=== PATIENT | female | born 1935 | race Caucasian/White ===

== ENCOUNTER 2021-01-14 17:05 | Inpatient (IN) ==
[2021-01-15] MEDS: Acetaminophen 325 MG TABLET PO PRN ×2 (00:48→16:46)
[2021-01-15] MEDS ORDERED: *HR* OxyCODONE Immed Rel 5 MG TABLET PO PRN (01:48)
[2021-01-15] MEDS ORDERED: Ergocalciferol (VIT D2) 50,000 UNIT (1.25MG) CAP PO SCH (02:00)
[2021-01-15 05:42] LABS: Hematocrit 26.1 % (35.3-44.9); Hemoglobin 8.2 g/dL (11.5-15.4); Mean Corpuscular HGB Conc 31.4 g/dL (31.6-35.5); Mean Corpuscular Hemoglobin 29.2 pg (28.0-33.3); Mean Corpuscular Volume 92.9 fL (83.0-100.0); Mean Platelet Volume 9.4 fL (9.4-12.4); Nucleated Red Blood Cells 0.5 /100 WBC (0); Platelet Count 226 K/mcL (140-400); Red Blood Count 2.81 M/mcL (3.82-4.97); Red Cell Distribution Width 15.3 % (11.5-14.5); White Blood Count 12.1 K/mcL (4.3-11.1)
[2021-01-15 05:48] LABS: Prothrombin Time 22.5 Seconds (9.4-12.1)
[2021-01-15 05:56] LABS: BUN/Creatinine Ratio 33 (6-26); Blood Urea Nitrogen 26 mg/dL (8-23); Calcium 8.5 mg/dL (8.6-10.3); Carbon Dioxide 27 mEq/L (23-29); Chloride 106 mEq/L (98-107); Glucose 97 mg/dL (70-105); Osmolality,Calculated 291 (280-300); Sodium 138 mEq/L (136-145); eGFR For African Americans > 60 (> 60); eGFR For Non-African Americans > 60 (> 60)
[2021-01-15] MEDS ORDERED: *HR* Enoxaparin 80 MG/0.8 ML SYRINGE SQ SCH (06:00)
[2021-01-15] MEDS: cephALEXin 500 MG CAPSULE PO SCH ×3 (08:23→21:13)
[2021-01-15] MEDS: amLODIPine 5 MG TABLET PO SCH (08:23)
[2021-01-15] MEDS: Cyanocobalamin (B-12) 1,000 MCG TABLET PO SCH (08:23)
[2021-01-15] MEDS: Sennosides/Docusate Sodium TABLET PO SCH ×2 (08:23→21:09)
[2021-01-15] MEDS: Cholecalciferol (D-3) 1,000 UNIT (25MCG) TABLET PO SCH (08:23)
[2021-01-15] MEDS: Multivit/Ca/Min/Fe/FA 1 TAB TABLET PO SCH (08:23)
[2021-01-15] MEDS: polyethylene glycoL 3350 17 GM POWD.PACK PO SCH ×2 (08:23→21:17)
[2021-01-15] MEDS: Aspirin Enteric Coated 81 MG Tablet PO SCH (08:23)
[2021-01-15] MEDS: Fluticasone Propionate Nasal 50 MCG/SPRAY BOTTLE NS SCH ×2 (08:24→21:17)
[2021-01-15 10:12] LABS: Eosinophils # 0.2 K/mcL (0.0-0.6); Hypochromasia Present (Not Present); Lymphocytes # 1.2 K/mcL (0.6-4.6); Neutrophils # 10.7 K/mcL (1.6-8.9); Platelet Estimate Normal (Normal)
[2021-01-15] MEDS: Budesonide/Formoterol 160/4.5 1 PUFF INH IH SCH ×2 (10:17→20:39)
[2021-01-15] MEDS: *HR* OxyCODONE Immed Rel 5 MG TABLET PO PRN ×2 (12:48→21:04)
[2021-01-15] MEDS ORDERED: Warfarin perPT PO PRN (18:00)
[2021-01-15] MEDS ORDERED: *HR* Warfarin 2.5 MG TABLET PO SCH (18:00)
[2021-01-15] MEDS: Melatonin 3 MG TABLET PO SCH (21:11)
[2021-01-15] MEDS: Latanoprost 2.5 ML BOTTLE BOTH EYES SCH (21:17)
[2021-01-16] MEDS: *HR* OxyCODONE Immed Rel 5 MG TABLET PO PRN ×3 (04:31→23:49)
[2021-01-16 06:07] LABS: INR 1.7; Prothrombin Time 19.1 Seconds (9.4-12.1)
[2021-01-16] MEDS: cephALEXin 500 MG CAPSULE PO SCH ×3 (08:47→21:19)
[2021-01-16] MEDS: Cholecalciferol (D-3) 1,000 UNIT (25MCG) TABLET PO SCH (08:48)
[2021-01-16] MEDS: Sennosides/Docusate Sodium TABLET PO SCH ×2 (08:48→21:20)
[2021-01-16] MEDS: amLODIPine 5 MG TABLET PO SCH (08:48)
[2021-01-16] MEDS: Multivit/Ca/Min/Fe/FA 1 TAB TABLET PO SCH (08:48)
[2021-01-16] MEDS: polyethylene glycoL 3350 17 GM POWD.PACK PO SCH ×2 (08:48→21:20)
[2021-01-16] MEDS: Cyanocobalamin (B-12) 1,000 MCG TABLET PO SCH (08:48)
[2021-01-16] MEDS: Aspirin Enteric Coated 81 MG Tablet PO SCH (08:48)
[2021-01-16] MEDS: Fluticasone Propionate Nasal 50 MCG/SPRAY BOTTLE NS SCH ×2 (08:49→21:22)
[2021-01-16] MEDS: Budesonide/Formoterol 160/4.5 1 PUFF INH IH SCH ×2 (10:35→20:37)
[2021-01-16] MEDS: *HR* Enoxaparin 80 MG/0.8 ML SYRINGE SQ SCH (17:30)
[2021-01-16] MEDS ORDERED: *HR* Warfarin 2 MG TABLET PO ONE (18:00)
[2021-01-16] MEDS: Melatonin 3 MG TABLET PO SCH (21:19)
[2021-01-16] MEDS: Latanoprost 2.5 ML BOTTLE BOTH EYES SCH (21:23)
[2021-01-16] MEDS: Acetaminophen 325 MG TABLET PO PRN (21:25)
[2021-01-17] MEDS: *HR* Enoxaparin 80 MG/0.8 ML SYRINGE SQ SCH ×2 (05:46→17:10)
[2021-01-17 05:56] LABS: Hematocrit 24.4 % (35.3-44.9); Hemoglobin 7.4 g/dL (11.5-15.4); Mean Corpuscular HGB Conc 30.3 g/dL (31.6-35.5); Mean Corpuscular Hemoglobin 29.2 pg (28.0-33.3); Mean Corpuscular Volume 96.4 fL (83.0-100.0); Platelet Count 278 K/mcL (140-400); Red Blood Count 2.53 M/mcL (3.82-4.97); Red Cell Distribution Width 16.1 % (11.5-14.5); White Blood Count 12.4 K/mcL (4.3-11.1)
[2021-01-17 06:03] LABS: INR 1.5; Prothrombin Time 16.7 Seconds (9.4-12.1)
[2021-01-17 07:02] LABS: Alanine Aminotransferase 19 Units/L (7-52); Albumin 2.8 g/dL (3.5-5.7); Albumin/Globulin Ratio 1.2 (1.1-2.2); Alkaline Phosphatase 171 Units/L (34-104); Aspartate Amino Transferase 60 Units/L (13-39); BUN/Creatinine Ratio 28 (6-26); Bilirubin,Total 0.7 mg/dL (0.3-1.0); Blood Urea Nitrogen 23 mg/dL (8-23); Calcium 8.4 mg/dL (8.6-10.3); Carbon Dioxide 28 mEq/L (23-29); Chloride 105 mEq/L (98-107); Globulin 2.3 g/dL (2.4-3.5); Glucose 119 mg/dL (70-105); Magnesium 1.8 mg/dL (1.6-2.6); Osmolality,Calculated 293 (280-300); Potassium 4.2 mEq/L (3.5-5.1); Sodium 139 mEq/L (136-145); Total Protein 5.1 g/dL (6.4-8.9); eGFR For African Americans > 60 (> 60); eGFR For Non-African Americans > 60 (> 60)
[2021-01-17] MEDS: polyethylene glycoL 3350 17 GM POWD.PACK PO SCH ×2 (08:16→20:42)
[2021-01-17] MEDS: Multivit/Ca/Min/Fe/FA 1 TAB TABLET PO SCH (08:17)
[2021-01-17] MEDS: Cholecalciferol (D-3) 1,000 UNIT (25MCG) TABLET PO SCH (08:17)
[2021-01-17] MEDS: amLODIPine 5 MG TABLET PO SCH (08:18)
[2021-01-17] MEDS: cephALEXin 500 MG CAPSULE PO SCH ×3 (08:18→20:43)
[2021-01-17] MEDS: Aspirin Enteric Coated 81 MG Tablet PO SCH (08:18)
[2021-01-17] MEDS: Sennosides/Docusate Sodium TABLET PO SCH ×2 (08:18→20:43)
[2021-01-17] MEDS: *HR* OxyCODONE Immed Rel 5 MG TABLET PO PRN ×2 (08:18→13:40)
[2021-01-17] MEDS: Cyanocobalamin (B-12) 1,000 MCG TABLET PO SCH (08:19)
[2021-01-17] MEDS: Fluticasone Propionate Nasal 50 MCG/SPRAY BOTTLE NS SCH ×2 (08:20→20:17)
[2021-01-17] MEDS: Budesonide/Formoterol 160/4.5 1 PUFF INH IH SCH ×2 (10:40→20:24)
[2021-01-17] MEDS: Furosemide 20 MG TABLET PO SCH (17:11)
[2021-01-17] MEDS ORDERED: *HR* Warfarin 2.5 MG TABLET PO ONE (18:00)
[2021-01-17] MEDS: Melatonin 3 MG TABLET PO SCH (20:43)
[2021-01-17] MEDS: Latanoprost 2.5 ML BOTTLE BOTH EYES SCH (20:44)
[2021-01-18] MEDS: *HR* OxyCODONE Immed Rel 5 MG TABLET PO PRN ×2 (04:20→20:10)
[2021-01-18] MEDS: *HR* Enoxaparin 80 MG/0.8 ML SYRINGE SQ SCH ×2 (04:20→16:32)
[2021-01-18 07:18] LABS: Hematocrit 22.9 % (35.3-44.9); Hemoglobin 7.1 g/dL (11.5-15.4)
[2021-01-18 07:25] LABS: INR 1.9; Prothrombin Time 20.8 Seconds (9.4-12.1)
[2021-01-18] MEDS: Aspirin Enteric Coated 81 MG Tablet PO SCH (09:25)
[2021-01-18] MEDS: Furosemide 20 MG TABLET PO SCH (09:25)
[2021-01-18] MEDS: Cholecalciferol (D-3) 1,000 UNIT (25MCG) TABLET PO SCH (09:26)
[2021-01-18] MEDS: Multivit/Ca/Min/Fe/FA 1 TAB TABLET PO SCH (09:26)
[2021-01-18] MEDS: Cyanocobalamin (B-12) 1,000 MCG TABLET PO SCH (09:26)
[2021-01-18] MEDS: Acetaminophen 325 MG TABLET PO PRN ×2 (09:26→17:24)
[2021-01-18] MEDS: cephALEXin 500 MG CAPSULE PO SCH ×3 (09:26→20:10)
[2021-01-18] MEDS: amLODIPine 5 MG TABLET PO SCH (09:26)
[2021-01-18] MEDS: Sennosides/Docusate Sodium TABLET PO SCH ×2 (09:26→20:10)
[2021-01-18] MEDS: polyethylene glycoL 3350 17 GM POWD.PACK PO SCH ×2 (09:28→20:10)
[2021-01-18] MEDS: Fluticasone Propionate Nasal 50 MCG/SPRAY BOTTLE NS SCH ×2 (09:28→20:09)
[2021-01-18] MEDS: Budesonide/Formoterol 160/4.5 1 PUFF INH IH SCH ×2 (10:08→20:44)
[2021-01-18 12:46] LABS: Iron 26 mcg/dL (50-170)
[2021-01-18] MEDS ORDERED: *HR* Warfarin 2 MG TABLET PO ONE (18:00)
[2021-01-18] MEDS: Melatonin 3 MG TABLET PO SCH (20:10)
[2021-01-18] MEDS: Latanoprost 2.5 ML BOTTLE BOTH EYES SCH (20:11)
[2021-01-19 04:33] LABS: INR 1.6; Prothrombin Time 17.9 Seconds (9.4-12.1)
[2021-01-19] MEDS: *HR* Enoxaparin 80 MG/0.8 ML SYRINGE SQ SCH ×2 (04:40→16:43)
[2021-01-19 08:10] LABS: Hematocrit 23.8 % (35.3-44.9); Hemoglobin 7.3 g/dL (11.5-15.4); Mean Corpuscular HGB Conc 30.7 g/dL (31.6-35.5); Mean Corpuscular Hemoglobin 29.6 pg (28.0-33.3); Mean Corpuscular Volume 96.4 fL (83.0-100.0); Mean Platelet Volume 9.2 fL (9.4-12.4); Platelet Count 301 K/mcL (140-400); Red Blood Count 2.47 M/mcL (3.82-4.97); Red Cell Distribution Width 16.2 % (11.5-14.5); White Blood Count 9.5 K/mcL (4.3-11.1)
[2021-01-19 08:24] LABS: BUN/Creatinine Ratio 26 (6-26); Blood Urea Nitrogen 21 mg/dL (8-23); Calcium 8.1 mg/dL (8.6-10.3); Calcium 8.2 mg/dL (8.6-10.3); Carbon Dioxide 30 mEq/L (23-29); Chloride 104 mEq/L (98-107); Glucose 111 mg/dL (70-105); Magnesium 1.8 mg/dL (1.6-2.6); Osmolality,Calculated 290 (280-300); Potassium 4.4 mEq/L (3.5-5.1); Sodium 138 mEq/L (136-145); eGFR For African Americans > 60 (> 60); eGFR For Non-African Americans > 60 (> 60)
[2021-01-19] MEDS: Budesonide/Formoterol 160/4.5 1 PUFF INH IH SCH ×2 (10:25→22:02)
[2021-01-19] MEDS: amLODIPine 5 MG TABLET PO SCH (11:28)
[2021-01-19] MEDS: polyethylene glycoL 3350 17 GM POWD.PACK PO SCH ×2 (11:28→21:56)
[2021-01-19] MEDS: Fluticasone Propionate Nasal 50 MCG/SPRAY BOTTLE NS SCH ×2 (11:28→22:00)
[2021-01-19] MEDS: Cholecalciferol (D-3) 1,000 UNIT (25MCG) TABLET PO SCH (11:30)
[2021-01-19] MEDS: Aspirin Enteric Coated 81 MG Tablet PO SCH (11:30)
[2021-01-19] MEDS: Multivit/Ca/Min/Fe/FA 1 TAB TABLET PO SCH (11:30)
[2021-01-19] MEDS: Cyanocobalamin (B-12) 1,000 MCG TABLET PO SCH (11:30)
[2021-01-19] MEDS: cephALEXin 500 MG CAPSULE PO SCH ×3 (11:31→21:58)
[2021-01-19] MEDS: Sennosides/Docusate Sodium TABLET PO SCH ×2 (11:31→21:57)
[2021-01-19] MEDS: Furosemide 20 MG TABLET PO SCH (11:31)
[2021-01-19] MEDS: Acetaminophen 325 MG TABLET PO PRN (11:31)
[2021-01-19] MEDS ORDERED: 0.9 % Sodium Chloride 250 ML ONE (12:39)
[2021-01-19] MEDS: *HR* OxyCODONE Immed Rel 5 MG TABLET PO PRN ×2 (16:43→22:30)
[2021-01-19] MEDS ORDERED: *HR* Warfarin 3 MG TABLET PO ONE (18:00)
[2021-01-19] MEDS: Melatonin 3 MG TABLET PO SCH (21:58)
[2021-01-19] MEDS: Latanoprost 2.5 ML BOTTLE BOTH EYES SCH (21:59)
[2021-01-19] MEDS ORDERED: *HR* Phytonadione 5 MG TABLET PO ONE (23:58)
[2021-01-20 06:52] LABS: Basophils # 0.1 K/mcL (0.0-0.2); Basophils % 0.6 %; Eosinophils # 0.3 K/mcL (0.0-0.6); Eosinophils % 2.4 %; Hemoglobin 7.4 g/dL (11.5-15.4); Immature Granulocytes % 5.4 % (0-4); Lymphocytes # 1.8 K/mcL (0.6-4.6); Lymphocytes % 14.8 %; Mean Corpuscular HGB Conc 30.8 g/dL (31.6-35.5); Mean Corpuscular Volume 94.1 fL (83.0-100.0); Mean Platelet Volume 9.6 fL (9.4-12.4); Monocytes # 0.9 K/mcL (0.0-1.3); Monocytes % 7.4 %; Neutrophils # 8.5 K/mcL (1.6-8.9); Nucleated Red Blood Cells 0.2 /100 WBC (0); Platelet Count 333 K/mcL (140-400); Red Blood Count 2.55 M/mcL (3.82-4.97); Red Cell Distribution Width 17.2 % (11.5-14.5); Segmented Neutrophils % 69.4 %; White Blood Count 12.3 K/mcL (4.3-11.1)
[2021-01-20 06:54] LABS: INR 1.6; Prothrombin Time 17.7 Seconds (9.4-12.1)
[2021-01-20 07:00] LABS: BUN/Creatinine Ratio 35 (6-26); Blood Urea Nitrogen 27 mg/dL (8-23); Calcium 7.9 mg/dL (8.6-10.3); Carbon Dioxide 30 mEq/L (23-29); Chloride 104 mEq/L (98-107); Glucose 119 mg/dL (70-105); Osmolality,Calculated 292 (280-300); Potassium 4.7 mEq/L (3.5-5.1); Sodium 138 mEq/L (136-145); eGFR For African Americans > 60 (> 60); eGFR For Non-African Americans > 60 (> 60)
[2021-01-20 07:23] LABS: Hypochromasia Present (Not Present); Platelet Estimate Normal (Normal)
[2021-01-20] MEDS ORDERED: Iron Sucrose Complex 200 MG in 0.9 % Sodium Chloride 100 ML IVPB ONE (08:00)
[2021-01-20] MEDS: polyethylene glycoL 3350 17 GM POWD.PACK PO SCH ×2 (09:00→20:37)
[2021-01-20] MEDS: Cyanocobalamin (B-12) 1,000 MCG TABLET PO SCH (09:01)
[2021-01-20] MEDS: Cholecalciferol (D-3) 1,000 UNIT (25MCG) TABLET PO SCH (09:01)
[2021-01-20] MEDS: Furosemide 20 MG TABLET PO SCH (09:01)
[2021-01-20] MEDS: Sennosides/Docusate Sodium TABLET PO SCH ×2 (09:01→20:37)
[2021-01-20] MEDS: Aspirin Enteric Coated 81 MG Tablet PO SCH (09:02)
[2021-01-20] MEDS: Multivit/Ca/Min/Fe/FA 1 TAB TABLET PO SCH (09:02)
[2021-01-20] MEDS: cephALEXin 500 MG CAPSULE PO SCH ×3 (09:02→20:38)
[2021-01-20] MEDS: Fluticasone Propionate Nasal 50 MCG/SPRAY BOTTLE NS SCH ×2 (09:03→20:39)
[2021-01-20] MEDS: amLODIPine 5 MG TABLET PO SCH (09:03)
[2021-01-20] MEDS: Acetaminophen 325 MG TABLET PO PRN (09:32)
[2021-01-20] MEDS: Budesonide/Formoterol 160/4.5 1 PUFF INH IH SCH ×2 (10:12→20:28)
[2021-01-20] MEDS: *HR* OxyCODONE Immed Rel 5 MG TABLET PO PRN (13:35)
[2021-01-20 14:21] LABS: % Iron Saturation 16 % (15-50); Transferrin 118 mg/dL (200-400)
[2021-01-20 20:31] VITALS: BP 104/60; PULSE 86; RESP 18; TEMP 98.1; O2SAT 97
[2021-01-20] MEDS: Melatonin 3 MG TABLET PO SCH (20:38)
[2021-01-20] MEDS: Latanoprost 2.5 ML BOTTLE BOTH EYES SCH (20:41)
== END 2021-01-20 23:03 | disposition short-term general hospital (02) | DRG 559 ==
LOC: INPGRE 23:10
PROVIDERS: ADMIT Family Medicine; ATTEND Family Medicine

== ENCOUNTER 2021-01-31 13:23 | Inpatient (IN) ==
[2021-01-31] MEDS ORDERED: *HR* Warfarin 2.5 MG TABLET PO SCH (18:00)
[2021-02-01] MEDS: Budesonide/Formoterol 160/4.5 1 PUFF INH IH SCH ×3 (01:45→20:20)
[2021-02-01] MEDS: *HR* OxyCODONE Immed Rel 5 MG TABLET PO PRN ×3 (02:33→20:22)
[2021-02-01] MEDS: Saline Nasal Spray 44 ML BOTTLE NS SCH ×5 (02:39→21:39)
[2021-02-01] MEDS: Sennosides/Docusate Sodium TABLET PO SCH ×3 (02:40→20:21)
[2021-02-01] MEDS: Melatonin 3 MG TABLET PO SCH ×2 (02:46→20:22)
[2021-02-01 06:00] LABS: Basophils % 0.6 %; Eosinophils # 0.3 K/mcL (0.0-0.6); Eosinophils % 4.5 %; Hematocrit 24.9 % (35.3-44.9); Hemoglobin 7.6 g/dL (11.5-15.4); Immature Granulocytes % 2.3 % (0-4); Lymphocytes # 1.5 K/mcL (0.6-4.6); Lymphocytes % 21.4 %; Mean Corpuscular HGB Conc 30.5 g/dL (31.6-35.5); Mean Corpuscular Hemoglobin 29.9 pg (28.0-33.3); Mean Platelet Volume 9.4 fL (9.4-12.4); Monocytes # 0.8 K/mcL (0.0-1.3); Monocytes % 11.5 %; Neutrophils # 4.2 K/mcL (1.6-8.9); Platelet Count 294 K/mcL (140-400); Red Blood Count 2.54 M/mcL (3.82-4.97); Red Cell Distribution Width 17.6 % (11.5-14.5); Segmented Neutrophils % 59.7 %; White Blood Count 7.1 K/mcL (4.3-11.1)
[2021-02-01 06:04] LABS: INR 1.3; Prothrombin Time 14.3 Seconds (9.4-12.1)
[2021-02-01 06:15] LABS: BUN/Creatinine Ratio 19 (6-26); Blood Urea Nitrogen 15 mg/dL (8-23); Calcium 8.1 mg/dL (8.6-10.3); Carbon Dioxide 26 mEq/L (23-29); Chloride 105 mEq/L (98-107); Glucose 119 mg/dL (70-105); Osmolality,Calculated 284 (280-300); Potassium 3.6 mEq/L (3.5-5.1); Sodium 136 mEq/L (136-145); eGFR For African Americans > 60 (> 60); eGFR For Non-African Americans > 60 (> 60)
[2021-02-01] MEDS: polyethylene glycoL 3350 17 GM POWD.PACK PO PRN (08:09)
[2021-02-01] MEDS: Acetaminophen 325 MG TABLET PO PRN ×2 (08:10→17:32)
[2021-02-01] MEDS: Cholecalciferol (D-3) 1,000 UNIT (25MCG) TABLET PO SCH (08:10)
[2021-02-01] MEDS: Magnesium Oxide 400 MG TABLET PO SCH (08:10)
[2021-02-01] MEDS: Cyanocobalamin (B-12) 1,000 MCG TABLET PO SCH (08:10)
[2021-02-01] MEDS: Multivit/Ca/Min/Fe/FA 1 TAB TABLET PO SCH (08:10)
[2021-02-01] MEDS: Fluticasone Propionate Nasal 50 MCG/SPRAY BOTTLE NS SCH ×2 (08:11→20:25)
[2021-02-01] MEDS: Metoprolol XL (24 HR) Succ 25 MG TAB.ER.24H PO SCH (08:11)
[2021-02-01] MEDS: Aspirin Enteric Coated 81 MG Tablet PO SCH (08:11)
[2021-02-01] MEDS ORDERED: Warfarin perPT PO PRN (18:00)
[2021-02-01] MEDS ORDERED: *HR* Warfarin 5 MG TABLET PO ONE (18:00)
[2021-02-01] MEDS: Latanoprost 2.5 ML BOTTLE BOTH EYES SCH (20:24)
[2021-02-02] MEDS: *HR* OxyCODONE Immed Rel 5 MG TABLET PO PRN ×2 (05:59→19:54)
[2021-02-02 06:28] LABS: INR 1.5; Prothrombin Time 16.3 Seconds (9.4-12.1)
[2021-02-02] MEDS ORDERED: Ergocalciferol (VIT D2) 50,000 UNIT (1.25MG) CAP PO SCH (09:00)
[2021-02-02] MEDS: Metoprolol XL (24 HR) Succ 25 MG TAB.ER.24H PO SCH (09:16)
[2021-02-02] MEDS: Cyanocobalamin (B-12) 1,000 MCG TABLET PO SCH (09:17)
[2021-02-02] MEDS: Sennosides/Docusate Sodium TABLET PO SCH ×2 (09:17→19:47)
[2021-02-02] MEDS: Multivit/Ca/Min/Fe/FA 1 TAB TABLET PO SCH (09:17)
[2021-02-02] MEDS: Cholecalciferol (D-3) 1,000 UNIT (25MCG) TABLET PO SCH (09:17)
[2021-02-02] MEDS: Aspirin Enteric Coated 81 MG Tablet PO SCH (09:17)
[2021-02-02] MEDS: Saline Nasal Spray 44 ML BOTTLE NS SCH ×4 (09:17→19:49)
[2021-02-02] MEDS: Magnesium Oxide 400 MG TABLET PO SCH (09:17)
[2021-02-02] MEDS: Acetaminophen 325 MG TABLET PO PRN ×2 (09:18→14:40)
[2021-02-02] MEDS: Fluticasone Propionate Nasal 50 MCG/SPRAY BOTTLE NS SCH ×2 (09:19→19:48)
[2021-02-02] MEDS: Budesonide/Formoterol 160/4.5 1 PUFF INH IH SCH ×2 (10:39→20:47)
[2021-02-02 10:57] LABS: Hematocrit 25.5 % (35.3-44.9); Hemoglobin 7.7 g/dL (11.5-15.4)
[2021-02-02] MEDS ORDERED: *HR* Warfarin 5 MG TABLET PO ONE (18:00)
[2021-02-02] MEDS: Melatonin 3 MG TABLET PO SCH (19:48)
[2021-02-02] MEDS: Latanoprost 2.5 ML BOTTLE BOTH EYES SCH (19:48)
[2021-02-03 05:01] LABS: Basophils # 0.1 K/mcL (0.0-0.2); Basophils % 0.8 %; Eosinophils # 0.4 K/mcL (0.0-0.6); Eosinophils % 5.9 %; Hematocrit 26.7 % (35.3-44.9); Hemoglobin 7.9 g/dL (11.5-15.4); Immature Granulocytes % 2.1 % (0-4); Lymphocytes # 1.7 K/mcL (0.6-4.6); Lymphocytes % 25.6 %; Mean Corpuscular HGB Conc 29.6 g/dL (31.6-35.5); Mean Corpuscular Hemoglobin 29.6 pg (28.0-33.3); Mean Platelet Volume 9.1 fL (9.4-12.4); Monocytes # 0.7 K/mcL (0.0-1.3); Monocytes % 10.9 %; Neutrophils # 3.6 K/mcL (1.6-8.9); Platelet Count 299 K/mcL (140-400); Red Blood Count 2.67 M/mcL (3.82-4.97); Red Cell Distribution Width 17.5 % (11.5-14.5); Segmented Neutrophils % 54.7 %; White Blood Count 6.6 K/mcL (4.3-11.1)
[2021-02-03 05:02] LABS: INR 1.5; Prothrombin Time 16.4 Seconds (9.4-12.1)
[2021-02-03] MEDS: Acetaminophen 325 MG TABLET PO PRN ×2 (05:17→14:41)
[2021-02-03 05:20] LABS: Alanine Aminotransferase 15 Units/L (7-52); Albumin 2.8 g/dL (3.5-5.7); Albumin/Globulin Ratio 0.9 (1.1-2.2); Alkaline Phosphatase 109 Units/L (34-104); Aspartate Amino Transferase 23 Units/L (13-39); BUN/Creatinine Ratio 20 (6-26); Bilirubin,Total 0.5 mg/dL (0.3-1.0); Blood Urea Nitrogen 17 mg/dL (8-23); Calcium 8.5 mg/dL (8.6-10.3); Carbon Dioxide 28 mEq/L (23-29); Chloride 105 mEq/L (98-107); Globulin 3.1 g/dL (2.4-3.5); Glucose 106 mg/dL (70-105); Osmolality,Calculated 288 (280-300); Potassium 4.9 mEq/L (3.5-5.1); Sodium 138 mEq/L (136-145); Total Protein 5.9 g/dL (6.4-8.9); eGFR For African Americans > 60 (> 60); eGFR For Non-African Americans > 60 (> 60)
[2021-02-03] MEDS: Saline Nasal Spray 44 ML BOTTLE NS SCH ×4 (07:38→20:42)
[2021-02-03] MEDS: Metoprolol XL (24 HR) Succ 25 MG TAB.ER.24H PO SCH (07:38)
[2021-02-03] MEDS: Sennosides/Docusate Sodium TABLET PO SCH ×2 (07:38→20:33)
[2021-02-03] MEDS: Cholecalciferol (D-3) 1,000 UNIT (25MCG) TABLET PO SCH (07:38)
[2021-02-03] MEDS: Cyanocobalamin (B-12) 1,000 MCG TABLET PO SCH (07:38)
[2021-02-03] MEDS: Multivit/Ca/Min/Fe/FA 1 TAB TABLET PO SCH (07:38)
[2021-02-03] MEDS: Magnesium Oxide 400 MG TABLET PO SCH (07:38)
[2021-02-03] MEDS: Aspirin Enteric Coated 81 MG Tablet PO SCH (07:38)
[2021-02-03] MEDS: Fluticasone Propionate Nasal 50 MCG/SPRAY BOTTLE NS SCH ×2 (07:39→20:37)
[2021-02-03] MEDS: Budesonide/Formoterol 160/4.5 1 PUFF INH IH SCH ×2 (10:20→19:59)
[2021-02-03] MEDS ORDERED: *HR* Warfarin 7.5 MG TABLET PO ONE (18:00)
[2021-02-03] MEDS: polyethylene glycoL 3350 17 GM POWD.PACK PO PRN (20:33)
[2021-02-03] MEDS: *HR* OxyCODONE Immed Rel 5 MG TABLET PO PRN (20:33)
[2021-02-03] MEDS: Melatonin 3 MG TABLET PO SCH (20:34)
[2021-02-03] MEDS: Latanoprost 2.5 ML BOTTLE BOTH EYES SCH (20:37)
[2021-02-04 04:55] LABS: INR 1.5; Prothrombin Time 16.4 Seconds (9.4-12.1)
[2021-02-04] MEDS: Cholecalciferol (D-3) 1,000 UNIT (25MCG) TABLET PO SCH (08:31)
[2021-02-04] MEDS: Sennosides/Docusate Sodium TABLET PO SCH ×2 (08:31→19:18)
[2021-02-04] MEDS: Acetaminophen 325 MG TABLET PO PRN ×2 (08:31→14:46)
[2021-02-04] MEDS: Magnesium Oxide 400 MG TABLET PO SCH (08:32)
[2021-02-04] MEDS: Multivit/Ca/Min/Fe/FA 1 TAB TABLET PO SCH (08:32)
[2021-02-04] MEDS: Metoprolol XL (24 HR) Succ 25 MG TAB.ER.24H PO SCH (08:32)
[2021-02-04] MEDS: Cyanocobalamin (B-12) 1,000 MCG TABLET PO SCH (08:32)
[2021-02-04] MEDS: Aspirin Enteric Coated 81 MG Tablet PO SCH (08:32)
[2021-02-04] MEDS: Fluticasone Propionate Nasal 50 MCG/SPRAY BOTTLE NS SCH ×2 (08:35→21:10)
[2021-02-04] MEDS: Saline Nasal Spray 44 ML BOTTLE NS SCH ×4 (08:35→21:12)
[2021-02-04] MEDS: Budesonide/Formoterol 160/4.5 1 PUFF INH IH SCH ×2 (10:40→19:52)
[2021-02-04] MEDS ORDERED: Bisacodyl 10 MG RECTAL SUPPOSITORY RC PRN (11:55)
[2021-02-04] MEDS ORDERED: *HR* Warfarin 7.5 MG TABLET PO ONE (18:00)
[2021-02-04] MEDS: Melatonin 3 MG TABLET PO SCH (19:18)
[2021-02-04] MEDS: *HR* OxyCODONE Immed Rel 5 MG TABLET PO PRN (21:09)
[2021-02-04] MEDS: Latanoprost 2.5 ML BOTTLE BOTH EYES SCH (21:10)
[2021-02-05 05:20] LABS: Hematocrit 26.6 % (35.3-44.9); Hemoglobin 7.9 g/dL (11.5-15.4); Mean Corpuscular HGB Conc 29.7 g/dL (31.6-35.5); Mean Corpuscular Hemoglobin 29.4 pg (28.0-33.3); Mean Corpuscular Volume 98.9 fL (83.0-100.0); Mean Platelet Volume 8.9 fL (9.4-12.4); Platelet Count 273 K/mcL (140-400); Red Blood Count 2.69 M/mcL (3.82-4.97); Red Cell Distribution Width 17.2 % (11.5-14.5); White Blood Count 5.6 K/mcL (4.3-11.1)
[2021-02-05 05:25] LABS: INR 1.7; Prothrombin Time 18.5 Seconds (9.4-12.1)
[2021-02-05 05:37] LABS: Alanine Aminotransferase 12 Units/L (7-52); Albumin 2.8 g/dL (3.5-5.7); Albumin/Globulin Ratio 0.9 (1.1-2.2); Alkaline Phosphatase 111 Units/L (34-104); Aspartate Amino Transferase 20 Units/L (13-39); BUN/Creatinine Ratio 19 (6-26); Bilirubin,Total 0.5 mg/dL (0.3-1.0); Blood Urea Nitrogen 17 mg/dL (8-23); Calcium 8.4 mg/dL (8.6-10.3); Carbon Dioxide 27 mEq/L (23-29); Chloride 106 mEq/L (98-107); Glucose 108 mg/dL (70-105); Magnesium 1.9 mg/dL (1.6-2.6); Osmolality,Calculated 288 (280-300); Potassium 4.1 mEq/L (3.5-5.1); Sodium 138 mEq/L (136-145); Total Protein 5.8 g/dL (6.4-8.9); eGFR For African Americans > 60 (> 60); eGFR For Non-African Americans > 60 (> 60)
[2021-02-05] MEDS: Acetaminophen 325 MG TABLET PO PRN ×2 (06:20→14:43)
[2021-02-05] MEDS: Cholecalciferol (D-3) 1,000 UNIT (25MCG) TABLET PO SCH (08:27)
[2021-02-05] MEDS: Sennosides/Docusate Sodium TABLET PO SCH ×2 (08:27→20:57)
[2021-02-05] MEDS: Aspirin Enteric Coated 81 MG Tablet PO SCH (08:27)
[2021-02-05] MEDS: Metoprolol XL (24 HR) Succ 25 MG TAB.ER.24H PO SCH (08:27)
[2021-02-05] MEDS: Cyanocobalamin (B-12) 1,000 MCG TABLET PO SCH (08:27)
[2021-02-05] MEDS: Magnesium Oxide 400 MG TABLET PO SCH (08:27)
[2021-02-05] MEDS: Fluticasone Propionate Nasal 50 MCG/SPRAY BOTTLE NS SCH ×2 (08:28→20:58)
[2021-02-05] MEDS: Saline Nasal Spray 44 ML BOTTLE NS SCH ×4 (08:28→20:57)
[2021-02-05] MEDS: Multivit/Ca/Min/Fe/FA 1 TAB TABLET PO SCH (08:28)
[2021-02-05] MEDS: Budesonide/Formoterol 160/4.5 1 PUFF INH IH SCH ×2 (11:25→19:47)
[2021-02-05] MEDS ORDERED: *HR* Warfarin 7.5 MG TABLET PO ONE (18:00)
[2021-02-05] MEDS: Melatonin 3 MG TABLET PO SCH (20:56)
[2021-02-05] MEDS: *HR* OxyCODONE Immed Rel 5 MG TABLET PO PRN (20:56)
[2021-02-05] MEDS: Latanoprost 2.5 ML BOTTLE BOTH EYES SCH (20:58)
[2021-02-06 06:20] LABS: INR 1.9; Prothrombin Time 20.8 Seconds (9.4-12.1)
[2021-02-06] MEDS: Metoprolol XL (24 HR) Succ 25 MG TAB.ER.24H PO SCH (08:06)
[2021-02-06] MEDS: Cyanocobalamin (B-12) 1,000 MCG TABLET PO SCH (08:06)
[2021-02-06] MEDS: Multivit/Ca/Min/Fe/FA 1 TAB TABLET PO SCH (08:06)
[2021-02-06] MEDS: Aspirin Enteric Coated 81 MG Tablet PO SCH (08:06)
[2021-02-06] MEDS: Magnesium Oxide 400 MG TABLET PO SCH (08:06)
[2021-02-06] MEDS: Cholecalciferol (D-3) 1,000 UNIT (25MCG) TABLET PO SCH (08:06)
[2021-02-06] MEDS: Sennosides/Docusate Sodium TABLET PO SCH ×2 (08:07→20:37)
[2021-02-06] MEDS: Acetaminophen 325 MG TABLET PO PRN ×2 (08:07→14:53)
[2021-02-06] MEDS: polyethylene glycoL 3350 17 GM POWD.PACK PO PRN (08:14)
[2021-02-06] MEDS: Fluticasone Propionate Nasal 50 MCG/SPRAY BOTTLE NS SCH ×2 (09:51→20:38)
[2021-02-06] MEDS: Saline Nasal Spray 44 ML BOTTLE NS SCH ×4 (09:51→20:38)
[2021-02-06] MEDS: Budesonide/Formoterol 160/4.5 1 PUFF INH IH SCH ×2 (10:34→20:27)
[2021-02-06] MEDS ORDERED: *HR* Warfarin 7.5 MG TABLET PO ONE (18:00)
[2021-02-06] MEDS: *HR* OxyCODONE Immed Rel 5 MG TABLET PO PRN (20:37)
[2021-02-06] MEDS: Melatonin 3 MG TABLET PO SCH (20:37)
[2021-02-06] MEDS: Latanoprost 2.5 ML BOTTLE BOTH EYES SCH (20:38)
[2021-02-07 06:11] LABS: Hematocrit 28.1 % (35.3-44.9); Hemoglobin 8.5 g/dL (11.5-15.4); Mean Corpuscular HGB Conc 30.2 g/dL (31.6-35.5); Mean Corpuscular Hemoglobin 29.5 pg (28.0-33.3); Mean Corpuscular Volume 97.6 fL (83.0-100.0); Mean Platelet Volume 9.3 fL (9.4-12.4); Platelet Count 283 K/mcL (140-400); Red Blood Count 2.88 M/mcL (3.82-4.97)
[2021-02-07 06:22] LABS: INR 1.9; Prothrombin Time 21.6 Seconds (9.4-12.1)
[2021-02-07 06:35] LABS: BUN/Creatinine Ratio 20 (6-26); Blood Urea Nitrogen 18 mg/dL (8-23); Calcium 8.5 mg/dL (8.6-10.3); Carbon Dioxide 28 mEq/L (23-29); Chloride 104 mEq/L (98-107); Glucose 109 mg/dL (70-105); Osmolality,Calculated 288 (280-300); Potassium 4.2 mEq/L (3.5-5.1); Sodium 138 mEq/L (136-145); eGFR For African Americans > 60 (> 60); eGFR For Non-African Americans 60 (> 60)
[2021-02-07 07:44] VITALS: BP 146/63; PULSE 76; RESP 18; TEMP 98.1
[2021-02-07] MEDS: Sennosides/Docusate Sodium TABLET PO SCH (07:59)
[2021-02-07] MEDS: Acetaminophen 325 MG TABLET PO PRN (08:00)
[2021-02-07] MEDS: Multivit/Ca/Min/Fe/FA 1 TAB TABLET PO SCH (08:00)
[2021-02-07] MEDS: Metoprolol XL (24 HR) Succ 25 MG TAB.ER.24H PO SCH (08:00)
[2021-02-07] MEDS: Magnesium Oxide 400 MG TABLET PO SCH (08:00)
[2021-02-07] MEDS: Cholecalciferol (D-3) 1,000 UNIT (25MCG) TABLET PO SCH (08:00)
[2021-02-07] MEDS: Cyanocobalamin (B-12) 1,000 MCG TABLET PO SCH (08:00)
[2021-02-07] MEDS: Saline Nasal Spray 44 ML BOTTLE NS SCH ×2 (08:01→14:40)
[2021-02-07] MEDS: Fluticasone Propionate Nasal 50 MCG/SPRAY BOTTLE NS SCH (08:01)
[2021-02-07] MEDS: Aspirin Enteric Coated 81 MG Tablet PO SCH (09:26)
[2021-02-07] MEDS: Budesonide/Formoterol 160/4.5 1 PUFF INH IH SCH (10:22)
[2021-02-07 10:27] VITALS: O2SAT 95
[2021-02-07] MEDS ORDERED: *HR* Warfarin 4 MG TABLET PO ONE (18:00)
== END 2021-02-07 14:52 | disposition home or self-care (01) | DRG 559 ==
LOC: INPGRE 22:39
PROVIDERS: ADMIT Family Medicine; ATTEND Family Medicine